=== PATIENT | male | born 1940 | race Caucasian/White ===

== ENCOUNTER → 2016-10-26 | Outpatient (CLI) | payer MEDICARE, BC ==
[~2016-10-26] MED LIST: AZOR PO; CLON.1 PO; COUM2.5T PO; COUM5TAB PO; MAXZ25 PO; METO50TA PO; ZOLP10TA3 PO
[2016-10-26 13:21] LABS: BLOOD, URINE NEG (NEG); COMMENT (UR) CULT NOT INDICATED; CULTURE IF INDICATED CULT NOT INDICATED; GLUCOSE,URINE NEG (NEG); KETONE, URINE NEG (NEG); NITRITE,URINE NEG (NEG); PH, URINE 5.5 (5.0-8.5); URINE COLOR YELLOW (YELLW/STRAW)
[2016-10-26 13:31] LABS: AUTOMATED NEUTROPHIL # 2.3 TH/MM3 (1.8-7.7); BASOPHIL % 1.1 % (0.0-2.0); EOSINOPHIL # 0.2 TH/MM3 (0-0.4); HEMATOCRIT 39.5 % (39.0-51.0); HEMO FLAGS DIFF FINAL; LYMPH % 25.8 % (9.0-44.0); LYMPHOCYTE # 1.1 TH/MM3 (1.0-4.8); MEAN CORPUSCULAR HEMOGLOBIN 29.4 PG (27.0-34.0); MEAN CORPUSCULAR HGB CONC 33.5 % (32.0-36.0); MONO % 10.6 % (0.0-8.0); NEUT % 56.5 % (16.0-70.0); PLATELET COUNT 135 TH/MM3 (150-450); RED BLOOD COUNT 4.49 MIL/MM3 (4.50-5.90); RED CELL DISTRIBUTION WIDTH 13.9 % (11.6-17.2); WHITE BLOOD COUNT 4.1 TH/MM3 (4.0-11.0)
[2016-10-26 13:39] LABS: ANION GAP 6 MEQ/L (5-15); AST (GOT) 27 U/L (15-37); BICARBONATE 27.5 MEQ/L (21.0-32.0); BLOOD UREA NITROGEN 32 MG/DL (7-18); CHLORIDE 107 MEQ/L (98-107); GLOMERULAR FILTRATION RATE 47 ML/MIN (>89); GLUCOSE,FASTING 103 MG/DL (74-99); POTASSIUM 4.4 MEQ/L (3.5-5.1); SODIUM (NA) 140 MEQ/L (136-145)
[2016-10-26 13:49] LABS: ALKALINE PHOSPHATASE 76 U/L (45-117); ALT (GPT) 29 U/L (12-78); FREE T4 0.98 NG/DL (0.76-1.46); HDL CHOLESTEROL 45.3 MG/DL (40.0-60.0); LDL CHOLESTEROL 263 MG/DL (0-99); TOTAL BILIRUBIN ADULT 0.6 MG/DL (0.2-1.0)
== END ==
LOC: PLAB 10:45
PROVIDERS: ATTEND Internal Medicine
DX: M10.9 Gout, unspecified (principal); M19.90 Unspecified osteoarthritis, unspecified site; R53.83 Other fatigue; I10 Essential (primary) hypertension; Z12.5 Encounter for screening for malignant neoplasm of prostate
CPT/HCPCS: 80053; 80061; 81001; 84439; 84443; 85025; G0103

== ENCOUNTER → 2017-05-02 | Outpatient (CLI) | payer MEDICARE, BC ==
[~2017-05-02] MED LIST changes: +COLC1CAP3 PO; +NORC5TAB PO; +OMEGCAP PO; +TRIA1CAP6 PO; +TRIA37.5 PO
[2017-05-02 13:06] LABS: AUTOMATED NEUTROPHIL # 2.4 TH/MM3 (1.8-7.7); BASOPHIL # 0.1 TH/MM3 (0-0.2); BASOPHIL % 1.6 % (0.0-2.0); EOSINOPHIL # 0.3 TH/MM3 (0-0.4); EOSINOPHIL % 6.2 % (0.0-4.0); HEMO FLAGS DIFF FINAL; LYMPH % 23.1 % (9.0-44.0); MEAN CELL VOLUME 88.9 FL (80.0-100.0); MEAN CORPUSCULAR HEMOGLOBIN 29.5 PG (27.0-34.0); MEAN CORPUSCULAR HGB CONC 33.2 % (32.0-36.0); MONO % 11.7 % (0.0-8.0); NEUT % 57.4 % (16.0-70.0); PLATELET COUNT 141 TH/MM3 (150-450); RED CELL DISTRIBUTION WIDTH 14.6 % (11.6-17.2); WHITE BLOOD COUNT 4.2 TH/MM3 (4.0-11.0)
[2017-05-02 13:16] LABS: ANION GAP 6 MEQ/L (5-15); AST (GOT) 24 U/L (15-37); BICARBONATE 28.9 MEQ/L (21.0-32.0); BLOOD UREA NITROGEN 25 MG/DL (7-18); CHLORIDE 103 MEQ/L (98-107); GLOMERULAR FILTRATION RATE 57 ML/MIN (>89); GLUCOSE,FASTING 98 MG/DL (74-99); POTASSIUM 4.3 MEQ/L (3.5-5.1); SODIUM (NA) 138 MEQ/L (136-145); URIC ACID 5.7 MG/DL (2.6-7.2)
[2017-05-02 13:41] LABS: ALT (GPT) 24 U/L (12-78); FREE T3 2.81 PG/ML (2.18-3.98); FREE T4 0.99 NG/DL (0.76-1.46); HDL CHOLESTEROL 45.3 MG/DL (40.0-60.0); LDL CHOLESTEROL 239 MG/DL (0-99)
[2017-05-02 17:18] LABS: HEMOGLOBIN A1a 0.8 %; HEMOGLOBIN A1b 1.8 %; HEMOGLOBIN Ao 84.9 %; HEMOGLOBIN LA1C 2.2 %; HEMOGLOBIN P3 5.5 %
== END ==
LOC: PLAB 09:44
PROVIDERS: ATTEND Internal Medicine
DX: M10.9 Gout, unspecified (principal); I10 Essential (primary) hypertension; I70.90 Unspecified atherosclerosis; R73.01 Impaired fasting glucose; E78.5 Hyperlipidemia, unspecified; Z79.899 Other long term (current) drug therapy
CPT/HCPCS: 36415; 80048; 80061; 82607; 83036; 84439; 84443; 84450; 84460; 84481; 84550; 85025

== ENCOUNTER 2017-05-25 07:19 | Emergency (ER) | payer MEDICARE, BC ==
[~2017-05-25] VITALS: Ht 180.3 cm; Wt 84.0 kg
[~2017-05-25 07:19] MED LIST changes: -COLC1CAP3 PO; -NORC5TAB PO; -OMEGCAP PO; -TRIA1CAP6 PO; -TRIA37.5 PO
[2017-05-25 07:21] VITALS: BP 128/74; PULSE 96; RESP 16; TEMP 97.9; O2SAT 96
--- NOTE | 2017-05-25 07:40 | PD ---
HPI Chief Complaint: Injury Time Seen by Provider: 07:29 Travel History International Travel<30 days: No Contact w/Intl Traveler<30days: No Traveled to known affect area: No History of Present Illness HPI The patient is a 76-year-old male who presents to the emergency department for right leg pain. The patient states he banged the lateral distal third of his right lower extremity on a concrete block 3 days ago. He now notes swelling and pain of the distal one third. The pain is slightly alleviated when he applies pressure to the foot, but is throbbing and painful at rest. He does note some swelling over the affected area and some bruising. The patient does have a history of atrial fibrillation for which she takes Coumadin. He also has a history of previous aortic surgery with previous vein harvesting. His primary physician is Dr. Mateo Urias. He denies any numbness or tingling to the right lower extremity. He is able to ambulate with the help of a crutch. Symptoms are mild to moderate, exacerbated after he sustained trauma to lateral distal third of the right leg, and there are no current alleviating factors. PFSH Past Medical History Hx Anticoagulant Therapy: Yes (COUMADIN) Asthma: No Heart Rhythm Problems: Yes (HX A-FIB) Cardiovascular Problems: Yes High Cholesterol: Yes Chest Pain: Yes COPD: No Diminished Hearing: Yes (AUGUSTIN BILAT) Gout: Yes Hypertension: Yes Sleep Apnea: Yes Past Surgical History Abdominal Aneurysm Repair: Yes Cardiac Surgery: Yes (AORTIC DISSECTION (ELEPHANT TRUNK SURGERY), AORTIC VALVE REPLACEMENT) Coronary Artery Bypass Graft: Yes Genitourinary Surgery: Yes (INGUINAL HERNIA REPAIR) Oral Surgery: Yes (NASAL POLYPS REMOVED) Tonsillectomy: Yes Other Surgery: Yes (ABLATION, MITRAL VALVE REPAIR, SUBCLAVIAN DISSECTION) Social History Alcohol Use: No Tobacco Use: No (QUIT 1989) Substance Use: No Allergies-Medications (Allergen,Severity, Reaction): Coded Allergies: clindamycin (Unverified Allergy, Severe, Itching, 05/25/17) Reported Meds & Prescriptions Reported Meds & Active Scripts Active Reported Metoprolol Tartrate 50 Mg Tab 50 Mg PO BID [place]-3 Fish Oil/Vitamin (Fish Oil-Cholecalciferol) 1,000-1,000 Mg Cap 1 Cap PO DAILY Triamterene-Hydrochlorothiazide 37.5-25 Mg Tab 1 Tab PO DAILY Dyrenium (Triamterene) 50 Mg Cap 50 Mg PO DAILY Coumadin (Warfarin) 2.5 Mg Tab 2.5 Mg PO DAILY Colchicine 0.6 Mg Cap 0.6 Mg PO DAILY [Daryl] 5-20 Mg PO BID Review of Systems Cardiovascular: Positive: Irregular Rhythm Musculoskeletal: Positive: Edema, Pain Skin: Positive Other (bruising) Neurologic: No: Paresthesia, Sensory Disturbance Physical Exam Narrative GENERAL: Awake, alert, very pleasant 76-year-old male who appears his stated age and is in no acute respiratory distress. SKIN: Focused skin assessment warm/dry. HEAD: Atraumatic. Normocephalic. MUSCULOSKELETAL: The right lower extremity has ecchymosis over the distal one third of the right tibia-fibula with mild tension on the skin. Chronic venous stasis changes noted legs bilaterally and superficial varicosities of the right thigh noted. Positive distal pulses. He is able flex the right hip and right knee without difficulty. He is able to flex the right ankle with somewhat limited range of motion secondary to pain. Positive distal pulses. NEUROLOGICAL: Awake and alert. No obvious cranial nerve deficits. Motor grossly within normal limits. Normal speech. Sensation is intact of the medial , lateral, and dorsal aspect of the right foot. PSYCHIATRIC: Appropriate mood and affect; insight and judgment normal. Data Data Last Documented VS Vital Signs Date Time Temp Pulse Resp B/P (MAP) Pulse Ox O2 Delivery O2 Flow Rate FiO2 05/25/17 07:21 97.9 96 16 128/74 (92) 96 Orders Orders Tibia/Fibula (Ap/Lat) (05/25/17 ) Acetamin-Hydrocod 325-5 Mg ([place] 5-325 (05/25/17 07:45) [facility] Medical Decision Making Medical Screen Exam Complete: Yes Emergency Medical Condition: Yes Medical Record Reviewed: Yes Interpretation(s) X-ray reveals postoperative changes and arthritic changes but no acute fracture. Differential Diagnosis Differential diagnosis includes contusion, hematoma, compartment syndrome, fracture, sprain, strain. Narrative Course X-ray of the right tibia/fibula was obtained. 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 I do not believe the patient has compartment syndrome, he appears to have a hematoma over the distal aspect of the right lateral fibula, however, pulses and sensation are intact and the injuries 3 days old. X-ray reveals postoperative changes consistent with previous vein harvesting and arthritic changes but no acute fracture. The patient is advised to apply the Brandon wrap, elevate, ice, and activity as tolerated. He is also advised to follow-up with his primary physician. He will be prescribed pain medications. Diagnosis Primary Impression: Traumatic hematoma of right lower leg Qualified Codes: S80.11XA - Contusion of right lower leg, initial encounter Patient Instructions: General Instructions Additional Instructions: Brandon wrap as directed. Elevate, ice, pain medications as directed. Follow-up with her primary physician. Return if symptoms worsen or progress. Med/Other Pt SpecificInfo: Prescription(s) given Scripts Hydrocodone-Acetaminophen ([place]) 5-325 mg Tab 1 TAB PO Q6H Y for PAIN, #12 TAB 0 Refills Prov: Sameer Zarate MD 05/25/17 Disposition: 01 DISCHARGE HOME Condition: Stable Sameer Zarate MD May 25, 2017 07:40
[2017-05-25] MEDS ORDERED: COUM2.5T PO (07:42)
[2017-05-25] MEDS ORDERED: TRIA37.5 PO (07:42)
[2017-05-25] MEDS ORDERED: METO50TA PO (07:42)
[2017-05-25] MEDS ORDERED: COLC1CAP3 PO (07:42)
[2017-05-25] MEDS ORDERED: TRIA1CAP6 PO (07:42)
[2017-05-25] MEDS ORDERED: OMEGCAP PO (07:42)
[2017-05-25] MEDS ORDERED: ACETAMINOPHEN/HYDROcodone 325 MG/5 MG TAB PO ONE (07:45)
[2017-05-25] MEDS ORDERED: NORC5TAB PO (08:04)
--- NOTE | 2017-05-25 08:43 | RADRPT ---
EXAM DATE/TIME: 05/25/2017 07:52 [facility] COMPARISON: No previous studies available for comparison. INDICATIONS : Hit right lower leg on concrete planter, has pain and swelling to lower leg MEDICAL HISTORY : Cardiovascular disease. SURGICAL HISTORY : CABG. bilateral leg vein stripping ENCOUNTER: Initial ACUITY: 4 - 6 days PAIN SCORE: 6/10 LOCATION: Right lower leg FINDINGS: No fracture is seen. The knee and ankle joints are normally aligned. There is chondrocalcinosis at th e knee. Surgical clips are seen in the proximal medial lower leg. There is soft tissue swelling throu ghout the lower leg being most prominent distally. CONCLUSION: 1. No fracture is seen. 2. Soft tissue swelling. 3. Chondrocalcinosis of the knee. Ion Blackmon MD on May 25, 2017 at 8:40 Board Certified Radiologist. This report was verified electronically.
== END 2017-05-25 08:20 | disposition home or self-care (01) ==
LOC: PHED 07:19
DX: S80.11XA Contusion of right lower leg, initial encounter (principal); X58.XXXA Exposure to other specified factors, initial encounter; E78.00 Pure hypercholesterolemia, unspecified; I10 Essential (primary) hypertension; I25.10 Atherosclerotic heart disease of native coronary artery without angina pectoris; I48.91 Unspecified atrial fibrillation; M10.9 Gout, unspecified; Z79.01 Long term (current) use of anticoagulants; Z95.1 Presence of aortocoronary bypass graft; Z95.2 Presence of prosthetic heart valve
CPT/HCPCS: 73590; 99283

== ENCOUNTER → 2017-08-16 | Outpatient (CLI) | payer MEDICARE, BC ==
[~2017-08-16] MED LIST changes: -CLON.1 PO; +COLC1CAP3 PO; -COUM5TAB PO; -MAXZ25 PO; +MULTTAB67 PO; +NORC5TAB PO; +OMEGCAP PO; +TRIA1CAP6 PO; +TRIA37.5 PO; +TURM500C7 PO; +ULOR40TA PO; +VITA-176 PO; +VITA250T3 PO; +VITACAP7 PO; +WARF-23 PO; -ZOLP10TA3 PO
[2017-08-16 14:27] LABS: AUTOMATED NEUTROPHIL # 2.5 TH/MM3 (1.8-7.7); BASOPHIL % 0.8 % (0.0-2.0); EOSINOPHIL # 0.2 TH/MM3 (0-0.4); EOSINOPHIL % 5.4 % (0.0-4.0); HEMATOCRIT 39.1 % (39.0-51.0); HEMO FLAGS DIFF FINAL; LYMPH % 21.5 % (9.0-44.0); LYMPHOCYTE # 0.9 TH/MM3 (1.0-4.8); MEAN CELL VOLUME 89.2 FL (80.0-100.0); MEAN CORPUSCULAR HEMOGLOBIN 30.1 PG (27.0-34.0); MEAN CORPUSCULAR HGB CONC 33.7 % (32.0-36.0); MONO % 9.9 % (0.0-8.0); NEUT % 62.4 % (16.0-70.0); PLATELET COUNT 158 TH/MM3 (150-450); RED BLOOD COUNT 4.39 MIL/MM3 (4.50-5.90); RED CELL DISTRIBUTION WIDTH 14.6 % (11.6-17.2)
[2017-08-16 14:40] LABS: ANION GAP 3 MEQ/L (5-15); AST (GOT) 22 U/L (15-37); BICARBONATE 29.8 MEQ/L (21.0-32.0); BLOOD UREA NITROGEN 21 MG/DL (7-18); CHLORIDE 104 MEQ/L (98-107); POTASSIUM 4.4 MEQ/L (3.5-5.1); SODIUM (NA) 137 MEQ/L (136-145)
[2017-08-16 14:54] LABS: ALKALINE PHOSPHATASE 70 U/L (45-117); ALT (GPT) 25 U/L (12-78); FREE T4 1.01 NG/DL (0.76-1.46); GLOMERULAR FILTRATION RATE 54 ML/MIN (>89); TOTAL BILIRUBIN ADULT 0.6 MG/DL (0.2-1.0)
== END ==
LOC: PLAB 09:57
DX: R53.83 Other fatigue (principal)
CPT/HCPCS: 36415; 80053; 84439; 84443; 85025

== ENCOUNTER 2017-08-18 16:06 | Emergency (ER) | payer MEDICARE, BC ==
[~2017-08-18] VITALS: Ht 180.3 cm; Wt 87.6 kg
[~2017-08-18 16:06] MED LIST changes: -MULTTAB67 PO; -TURM500C7 PO; -ULOR40TA PO; -VITA-176 PO; -VITA250T3 PO; -VITACAP7 PO; -WARF-23 PO
[2017-08-18 16:12] VITALS: BP 139/67; PULSE 64; RESP 18; TEMP 98.1; O2SAT 99
[2017-08-18] MEDS ORDERED: WARF-23 PO (16:35)
[2017-08-18] MEDS ORDERED: TURM500C7 PO (16:59)
[2017-08-18] MEDS ORDERED: VITA-176 PO (16:59)
[2017-08-18] MEDS ORDERED: VITACAP7 PO (16:59)
[2017-08-18] MEDS ORDERED: ULOR40TA PO (16:59)
[2017-08-18] MEDS ORDERED: MULTTAB67 PO (16:59)
[2017-08-18] MEDS ORDERED: VITA250T3 PO (16:59)
[2017-08-18] MEDS ORDERED: COLC1CAP3 PO (16:59)
[2017-08-18 17:12] VITALS: BP 118/58; PULSE 68; RESP 18; O2SAT 97
[2017-08-18 17:14] LABS: AUTOMATED NEUTROPHIL # 3.7 TH/MM3 (1.8-7.7); BASOPHIL % 0.8 % (0.0-2.0); EOSINOPHIL # 0.3 TH/MM3 (0-0.4); EOSINOPHIL % 4.9 % (0.0-4.0); HEMATOCRIT 36.9 % (39.0-51.0); HEMO FLAGS DIFF FINAL; LYMPH % 19.3 % (9.0-44.0); LYMPHOCYTE # 1.1 TH/MM3 (1.0-4.8); MEAN CORPUSCULAR HEMOGLOBIN 28.7 PG (27.0-34.0); MONO % 8.2 % (0.0-8.0); NEUT % 66.8 % (16.0-70.0); PLATELET COUNT 176 TH/MM3 (150-450); RED BLOOD COUNT 4.24 MIL/MM3 (4.50-5.90); RED CELL DISTRIBUTION WIDTH 13.9 % (11.6-17.2); WHITE BLOOD COUNT 5.6 TH/MM3 (4.0-11.0)
[2017-08-18 17:18] LABS: BLOOD, URINE NEG (NEG); GLUCOSE,URINE NEG (NEG); KETONE, URINE NEG (NEG); NITRITE,URINE NEG (NEG)
[2017-08-18 17:23] LABS: COMMENT (UR) CULT NOT INDICATED; CULTURE IF INDICATED CULT NOT INDICATED; METHOD OF COLLECTION CLEAN CATCH; SQUAMOUS EPITHELIAL CELL URINE 0-5 /hpf (0-5); URINE COLOR YELLOW (YELLW/STRAW)
[2017-08-18 17:24] LABS: CHLORIDE 104 MEQ/L (98-107); POTASSIUM 4.4 MEQ/L (3.5-5.1); SODIUM (NA) 137 MEQ/L (136-145)
[2017-08-18 17:28] LABS: ANION GAP 7 MEQ/L (5-15); BICARBONATE 26.2 MEQ/L (21.0-32.0); BLOOD UREA NITROGEN 24 MG/DL (7-18)
[2017-08-18 17:31] LABS: ALT (GPT) 25 U/L (12-78); AST (GOT) 24 U/L (15-37); GLOMERULAR FILTRATION RATE 58 ML/MIN (>89)
[2017-08-18 17:32] LABS: TOTAL BILIRUBIN ADULT 0.4 MG/DL (0.2-1.0)
--- NOTE | 2017-08-18 17:32 | RADRPT ---
EXAM DATE/TIME: 08/18/2017 17:23 [facility] COMPARISON: CHEST SINGLE AP, July 04, 2015, 0:44. INDICATIONS : Shortness of breath. MEDICAL HISTORY : Hypertension. SURGICAL HISTORY : CABG. ENCOUNTER: Initial ACUITY: 1 day PAIN SCORE: 0/10 LOCATION: Bilateral chest FINDINGS: A single view of the chest demonstrates the lungs to be symmetrically aerated without evidence of mas s, infiltrate or effusion. The heart size is enlarged but stable. There is evidence of previous card iothoracic surgery.. Osseous structures are intact. No new or significant changes compared to 2014. CONCLUSION: No acute disease. No significant change has occurred. Sammy Connell MD on August 18, 2017 at 17:30 Board Certified Radiologist. This report was verified electronically.
[2017-08-18 17:34] LABS: ALKALINE PHOSPHATASE 72 U/L (45-117)
[2017-08-18] MEDS ORDERED: LORazepam 2 MG/ML VIAL IM ONE (18:00)
[2017-08-18] MEDS ORDERED: ONDANSETRON ODT 4 MG TAB PO ONE (18:00)
[2017-08-18 18:09] VITALS: BP 137/66; PULSE 64; RESP 18; O2SAT 99
--- NOTE | 2017-08-18 18:24 | PD ---
HPI Chief Complaint: General Weakness Time Seen by Provider: 16:56 Travel History International Travel<30 days: No Contact w/Intl Traveler<30days: No Traveled to known affect area: No History of Present Illness HPI Presents with complaints of fatigue for approximately 3 weeks. States he was recently diagnosed with a hematoma on his right lower extremity and started on several medications and has felt fatigued and mildly short of breath since then. Denies any nausea vomiting diarrhea or fever. Denies any new chest pain urinary or bowel symptoms. Past medical history for coronary artery disease hypertension hyperlipidemia and history of A. fib. Compliant with Coumadin. PFSH Past Medical History Hx Anticoagulant Therapy: Yes (COUMADIN) Asthma: No Heart Rhythm Problems: Yes (HX A-FIB) Cardiovascular Problems: Yes (MD, HTN, CHOL) High Cholesterol: Yes Chest Pain: Yes COPD: No Diabetes: No Diminished Hearing: Yes (AUGUSTIN BILAT) Gout: Yes Hypertension: Yes Immunizations Current: Yes Sleep Apnea: Yes Tetanus Vaccination: Unknown Influenza Vaccination: Yes Past Surgical History Abdominal Aneurysm Repair: Yes Cardiac Surgery: Yes (AORTIC DISSECTION (ELEPHANT TRUNK SURGERY), AORTIC VALVE REPLACEMENT) Coronary Artery Bypass Graft: Yes Genitourinary Surgery: Yes (INGUINAL HERNIA REPAIR) Oral Surgery: Yes (NASAL POLYPS REMOVED) Tonsillectomy: Yes Other Surgery: Yes (ABLATION, MITRAL VALVE REPAIR, SUBCLAVIAN DISSECTION) Social History Alcohol Use: No Tobacco Use: No (QUIT 1989) Substance Use: No Allergies-Medications (Allergen,Severity, Reaction): Coded Allergies: clindamycin (Unverified Allergy, Severe, Itching, 08/18/17) oxycodone (Verified Allergy, Severe, 08/18/17) Reported Meds & Prescriptions Reported Meds & Active Scripts Active Reported B Complex (B-Complex Vitamins) 1 Cap 1 Cap PO DAILY Turmeric (Turmeric Root Extract) 500 Mg Capsule 1,500 Mg PO DAILY Vitamin A (Vitamin A Acetate) 10,000 Unit Tab.subl 1 Tab PO DAILY Vitamin C (Ascorbic Acid) 250 Mg Tab 1,000 Mg PO DAILY Multiple Vitamin 1 Tab 1 Tab PO DAILY Uloric (Febuxostat) 40 Mg Tab 1 Tab PO DAILY Colchicine 0.6 Mg Cap 0.6 Mg PO DAILY Warfarin 5 Mg Tab 5 Mg PO SUN Metoprolol Tartrate 50 Mg Tab 50 Mg PO BID [place]-3 Fish Oil/Vitamin (Fish Oil-Cholecalciferol) 1,000-1,000 Mg Cap 1 Cap PO DAILY Triamterene-Hydrochlorothiazide 37.5-25 Mg Tab 1 Tab PO DAILY Coumadin (Warfarin) 2.5 Mg Tab 2.5 Mg PO DAILY [Daryl] 5-20 Mg PO BID Review of Systems General / Constitutional: No: Fever Eyes: No: Visual changes HENT: No: Headaches Cardiovascular: No: Chest Pain or Discomfort Respiratory: No: Shortness of Breath Gastrointestinal: No: Abdominal Pain Genitourinary: No: Dysuria Musculoskeletal: No: Pain Skin: No Rash Neurologic: No: Weakness Psychiatric: No: Depression Endocrine: No: Polydipsia Hematologic/Lymphatic: No: Easy Bruising Physical Exam Narrative GENERAL: Well-nourished, well-developed patient. SKIN: Focused skin assessment warm/dry. HEAD: Normocephalic. EYES: No scleral icterus. No injection or drainage. NECK: Supple, trachea midline. No JVD or lymphadenopathy. CARDIOVASCULAR: Irregular rate and rhythm without murmurs, gallops, or rubs. RESPIRATORY: Breath sounds equal bilaterally. No accessory muscle use. GASTROINTESTINAL: Abdomen soft, non-tender, nondistended. MUSCULOSKELETAL: No cyanosis, or edema. BACK: Nontender without obvious deformity. No CVA tenderness. Data Data Last Documented VS Vital Signs Date Time Temp Pulse Resp B/P (MAP) Pulse Ox O2 Delivery O2 Flow Rate FiO2 08/18/17 18:09 64 18 137/66 (89) 99 Room Air 08/18/17 16:12 98.1 Orders Orders Electrocardiogram (08/18/17 ) Complete Blood Count With Diff (08/18/17 16:56) Comprehensive Metabolic Panel (08/18/17 16:56) Urinalysis - C+S If Indicated (08/18/17 16:56) Chest, Single Ap (08/18/17 ) Ondansetron Odt (Zofran Odt) (08/18/17 18:00) Lorazepam Inj (Ativan Inj) (08/18/17 18:00) Labs Laboratory Tests Test 08/18/17 16:45 08/18/17 17:10 Urine Collection Type CLEAN CATCH Urine Color YELLOW Urine Turbidity CLEAR Urine pH 7.0 Urine Specific [place] 1.009 Urine Protein NEG mg/dL Urine Glucose (UA) NEG mg/dL Urine Ketones NEG mg/dL Urine Occult Blood NEG Urine Nitrite NEG Urine Bilirubin NEG Urine Leukocyte Esterase NEG Urine Squamous Epithelial Cells 0-5 /hpf Microscopic Urinalysis Comment CULT NOT INDICATED White Blood Count 5.6 TH/MM3 Red Blood Count 4.24 MIL/MM3 Hemoglobin 12.2 GM/DL Hematocrit 36.9 % Mean Corpuscular Volume 87.0 FL Mean Corpuscular Hemoglobin 28.7 PG Mean Corpuscular Hemoglobin Concent 33.0 % Red Cell Distribution Width 13.9 % Platelet Count 176 TH/MM3 Mean Platelet Volume 7.1 FL Neutrophils (%) (Auto) 66.8 % Lymphocytes (%) (Auto) 19.3 % Monocytes (%) (Auto) 8.2 % Eosinophils (%) (Auto) 4.9 % Basophils (%) (Auto) 0.8 % Neutrophils # (Auto) 3.7 TH/MM3 Lymphocytes # (Auto) 1.1 TH/MM3 Monocytes # (Auto) 0.5 TH/MM3 Eosinophils # (Auto) 0.3 TH/MM3 Basophils # (Auto) 0.0 TH/MM3 CBC Comment DIFF FINAL Differential Comment Blood Urea Nitrogen 24 MG/DL Creatinine 1.20 MG/DL Random Glucose 100 MG/DL Total Protein 7.0 GM/DL Albumin 3.7 GM/DL Calcium Level 8.7 MG/DL Alkaline Phosphatase 72 U/L Aspartate Amino Transf (AST/SGOT) 24 U/L Alanine Aminotransferase (ALT/SGPT) 25 U/L Total Bilirubin 0.4 MG/DL Sodium Level 137 MEQ/L Potassium Level 4.4 MEQ/L Chloride Level 104 MEQ/L Carbon Dioxide Level 26.2 MEQ/L Anion Gap 7 MEQ/L Estimat Glomerular Filtration Rate 58 ML/MIN [facility] Medical Decision Making Medical Screen Exam Complete: Yes Emergency Medical Condition: Yes Differential Diagnosis Failure to thrive, dysrhythmia, sepsis, dyspnea, generalized weakness Narrative Course Assessment and plan discussed with patient at bedside. EKG revealed sinus bradycardia with sinus arrhythmia and first-degree AV block. Comparison revealed a ectopic atrial rhythm however was more regular. Labs within normal limits. Mildly anemic but I don't think significant enough to cause his symptoms. Last 72 hours Impressions Chest X-Ray 08/18/17 0000 Signed Impressions: Service Date/Time: Friday, August 18, 2017 17:23 - CONCLUSION: No acute disease. No significant change has occurred. Sammy Connell MD Diagnosis Primary Impression: Generalized weakness Additional Impressions: Dyspnea Qualified Codes: R06.00 - Dyspnea, unspecified Sinus arrhythmia Patient Instructions: General Instructions Additional Instructions: Encouraged patient to follow up with cardiology to discuss sinus arrhythmia and possible adjustment of his beta ezekiel. Encouraged to return to emergency room with any onset of new symptoms. Med/Other Pt SpecificInfo: No Meds Exist/No RX given Disposition: 01 DISCHARGE HOME Condition: Good Conrad Aguilera MD Aug 18, 2017 18:24
--- NOTE | 2017-08-19 19:45 | EKG ---
Date Performed: 08/18/2017 Time Performed: 17:02:32 PTAGE: 77 years EKG: SINUS ECTOPIC BRADYCARDIA WITH MARKED SINUS ARRHYTHMIA WITH FIRST DEGREE AV BLOCK INDETERM INATE AXIS ABNORMAL ECG PREVIOUS TRACING : 07/04/2015 00.43 Compared to prior tracing no significant change DOCTOR: Noam Rdz Interpretating Date/Time 08/19/2017 19:43:41
== END 2017-08-18 18:43 | disposition home or self-care (01) ==
LOC: PHED 16:06
DX: R53.1 Weakness (principal); R06.02 Shortness of breath; R94.31 Abnormal electrocardiogram [ECG] [EKG]; I48.91 Unspecified atrial fibrillation; I10 Essential (primary) hypertension; I25.10 Atherosclerotic heart disease of native coronary artery without angina pectoris; E78.00 Pure hypercholesterolemia, unspecified
CPT/HCPCS: 71010; 80053; 81001; 85025; 93005; 96372

== ENCOUNTER → 2017-10-30 | Outpatient (CLI) | payer MEDICARE, BC ==
[~2017-10-30] MED LIST changes: +MULTTAB67 PO; -NORC5TAB PO; -TRIA1CAP6 PO; +TURM500C7 PO; +ULOR40TA PO; +VITA-176 PO; +VITA250T3 PO; +VITACAP7 PO; +WARF-23 PO
[2017-10-30 13:00] LABS: AUTOMATED NEUTROPHIL # 4.3 TH/MM3 (1.8-7.7); BASOPHIL # 0.1 TH/MM3 (0-0.2); EOSINOPHIL # 0.2 TH/MM3 (0-0.4); EOSINOPHIL % 2.9 % (0.0-4.0); HEMATOCRIT 39.8 % (39.0-51.0); HEMOGLOBIN 13.7 GM/DL (13.0-17.0); LYMPH % 22.5 % (9.0-44.0); LYMPHOCYTE # 1.5 TH/MM3 (1.0-4.8); MEAN CELL VOLUME 87.3 FL (80.0-100.0); MEAN CORPUSCULAR HEMOGLOBIN 29.9 PG (27.0-34.0); MEAN CORPUSCULAR HGB CONC 34.3 % (32.0-36.0); MEAN PLATELET VOLUME 7.4 FL (7.0-11.0); MONO % 10.4 % (0.0-8.0); MONOCYTE # 0.7 TH/MM3 (0-0.9); NEUT % 63.2 % (16.0-70.0); PLATELET COUNT 207 TH/MM3 (150-450); RED BLOOD COUNT 4.56 MIL/MM3 (4.50-5.90); RED CELL DISTRIBUTION WIDTH 14.2 % (11.6-17.2); WHITE BLOOD COUNT 6.8 TH/MM3 (4.0-11.0)
[2017-10-30 13:06] LABS: ALBUMIN 3.6 GM/DL (3.4-5.0); AST (GOT) 28 U/L (15-37); BICARBONATE 30.9 MEQ/L (21.0-32.0); BLOOD UREA NITROGEN 33 MG/DL (7-18); CALCIUM 9.1 MG/DL (8.5-10.1); CHLORIDE 103 MEQ/L (98-107); CREATININE 1.13 MG/DL (0.60-1.30); GLOMERULAR FILTRATION RATE 63 ML/MIN (>89); GLUCOSE,FASTING 91 MG/DL (74-99); SODIUM (NA) 138 MEQ/L (136-145)
[2017-10-30 13:06] LABS: BILIRUBIN, URINE NEG (NEG); BLOOD, URINE NEG (NEG); GLUCOSE,URINE NEG (NEG); KETONE, URINE NEG (NEG); MUCUS URINE FEW /lpf (OCC); NITRITE,URINE NEG (NEG); PH, URINE 5.5 (5.0-8.5); URINE COLOR YELLOW (YELLW/STRAW); URINE LEUKOCYTE ESTERASE NEG (NEG)
[2017-10-30 13:32] LABS: ALKALINE PHOSPHATASE 54 U/L (45-117); ALT (GPT) 35 U/L (12-78); CHOLESTEROL 338 MG/DL (120-200); CHOLESTEROL/ HDL RATIO 4.52 RATIO; FREE T3 2.32 PG/ML (2.18-3.98); FREE T4 1.05 NG/DL (0.76-1.46); HDL CHOLESTEROL 74.7 MG/DL (40.0-60.0); LDL CHOLESTEROL 235 MG/DL (0-99); TOTAL BILIRUBIN ADULT 0.5 MG/DL (0.2-1.0); TOTAL PROTEIN 6.9 GM/DL (6.4-8.2); TRIGLYCERIDES 144 MG/DL (42-150)
== END ==
LOC: PLAB 10:19
PROVIDERS: ATTEND Internal Medicine
DX: R53.83 Other fatigue (principal); E29.1 Testicular hypofunction; E78.5 Hyperlipidemia, unspecified; I10 Essential (primary) hypertension; Z79.899 Other long term (current) drug therapy; Z12.11 Encounter for screening for malignant neoplasm of colon; Z12.5 Encounter for screening for malignant neoplasm of prostate
CPT/HCPCS: 36415; 80053; 80061; 81001; 82607; 84403; 84439; 84443; 84481; 85025; G0103

== ENCOUNTER → 2017-12-19 | Outpatient (CLI) | payer MEDICARE, BC | LOC: PLAB 12:21 | PROVIDERS: ATTEND Internal Medicine Sleep Medicine | DX: E88.01 Alpha-1-antitrypsin deficiency (principal) | CPT/HCPCS: 36415; 82103 ==

== ENCOUNTER 2018-02-24 15:44 | Emergency (ER) | payer MEDICARE, BC ==
[~2018-02-24] VITALS: Ht 177.8 cm; Wt 84.4 kg
[2018-02-24 16:07] VITALS: BP 118/55; PULSE 61; RESP 16; TEMP 98.7; O2SAT 97
--- NOTE | 2018-02-24 17:18 | RADRPT ---
EXAM DATE: 02/24/2018 5:13 PM EDT AGE/SEX: 77 years / Male INDICATIONS: Left elbow pain, swelling, and decreased range of motion after fall. CLINICAL DATA: This is the patient's initial encounter. Patient reports that signs and symptoms have been present for 4 - 6 days and indicates a pain score of 10/10. MEDICAL/SURGICAL HISTORY: . No pertinent history. . No pertinent history. COMPARISON: [facility], ELBOW LEFT COMPLETE (4 VWS), 11/05/2010. . FINDINGS: Bone density is normal. Alignment is anatomic. Fracture is not appreciated. Small joint effusion evident. Site of fracture not appreciated. CONCLUSION: Small joint effusion. I do not see a definite fracture. Follow-up in 7-10 days would be of benefit if symptoms persist. Electronically signed by: Prosper Gibbs MD 02/24/2018 5:17 PM EDT
--- NOTE | 2018-02-24 17:19 | PD ---
HPI Chief Complaint: Fall Time Seen by Provider: 16:22 Travel History International Travel<30 days: No Contact w/Intl Traveler<30days: No Traveled to known affect area: No History of Present Illness HPI This is a 77-year-old male here with right wrist and left elbow pain after a fall 5 days ago. He reports he tripped and fell forward onto his concrete driveway. He does not believe he lost consciousness. He is anticoagulated on Coumadin. He has had continued pain within the extremities therefore came in today for evaluation after being encouraged by his son. He denies headaches, visual changes, neck pain, chest pain, shortness breath, nausea or vomiting, paresthesia or weakness of the extremities. He reports he has significant pain in the elbow and wrist with movement. Relieved with rest. Severity moderate PFSH Past Medical History Hx Anticoagulant Therapy: Yes Asthma: No Heart Rhythm Problems: Yes (HX A-FIB) Cardiovascular Problems: Yes (htn on meds, a-fib) High Cholesterol: Yes Chest Pain: Yes COPD: No Diabetes: No Diminished Hearing: Yes (AUGUSTIN BILAT) Gout: Yes Hypertension: Yes Immunizations Current: Yes Sleep Apnea: Yes Past Surgical History Abdominal Aneurysm Repair: Yes Cardiac Surgery: Yes (AORTIC DISSECTION (ELEPHANT TRUNK SURGERY), AORTIC VALVE REPLACEMENT) Coronary Artery Bypass Graft: Yes Genitourinary Surgery: Yes (INGUINAL HERNIA REPAIR) Oral Surgery: Yes (NASAL POLYPS REMOVED) Tonsillectomy: Yes Other Surgery: Yes (ABLATION, MITRAL VALVE REPAIR, SUBCLAVIAN DISSECTION) Social History Alcohol Use: Yes (RARE) Tobacco Use: No (QUIT 1989) Substance Use: No Allergies-Medications (Allergen,Severity, Reaction): Coded Allergies: clindamycin (Verified Allergy, Severe, Itching, 02/24/18) oxycodone (Verified Allergy, Severe, 02/24/18) Reported Meds & Prescriptions Reported Meds & Active Scripts Active Reported B Complex (B-Complex Vitamins) 1 Cap 1 Cap PO DAILY Turmeric (Turmeric Root Extract) 500 Mg Capsule 1,500 Mg PO DAILY Vitamin A (Vitamin A Acetate) 10,000 Unit Tab.subl 1 Tab PO DAILY Vitamin C (Ascorbic Acid) 250 Mg Tab 1,000 Mg PO DAILY Multiple Vitamin 1 Tab 1 Tab PO DAILY Uloric (Febuxostat) 40 Mg Tab 1 Tab PO DAILY Colchicine 0.6 Mg Cap 0.6 Mg PO DAILY Warfarin 5 Mg Tab 5 Mg PO SUN Metoprolol Tartrate 50 Mg Tab 50 Mg PO BID [place]-3 Fish Oil/Vitamin (Fish Oil-Cholecalciferol) 1,000-1,000 Mg Cap 1 Cap PO DAILY Triamterene-Hydrochlorothiazide 37.5-25 Mg Tab 1 Tab PO DAILY Coumadin (Warfarin) 2.5 Mg Tab 2.5 Mg PO DAILY [Daryl] 5-20 Mg PO BID Review of Systems Except as stated in HPI: all other systems reviewed are Neg General / Constitutional: No: Fever Eyes: No: Visual changes HENT: No: Headaches Cardiovascular: No: Chest Pain or Discomfort Respiratory: No: Shortness of Breath Gastrointestinal: No: Abdominal Pain Genitourinary: No: Dysuria Musculoskeletal: Positive: Pain (Left elbow, right wrist) Physical Exam Narrative GENERAL: Alert and well-appearing 77-year-old male. Ambulating with a steady gait SKIN: Warm and dry. No areas of ecchymosis or abrasions. HEAD: Atraumatic. Normocephalic. EYES: Pupils equal and round. EOMs intact. No injection or drainage. NECK: Trachea midline. No cervical midline tenderness. Freely moves the neck CARDIOVASCULAR: Regular rate and rhythm. RESPIRATORY: No accessory muscle use. Clear to auscultation. Breath sounds equal bilaterally. GASTROINTESTINAL: Abdomen soft, non-tender, nondistended. MUSCULOSKELETAL: Extremities without clubbing, cyanosis, or edema. No obvious deformities. Left upper extremity: Notable swelling and tenderness to the left elbow over the olecranon. Pain with full extension. Palpable distal pulses. Sensation intact. Cap refill intact. Right upper extremity: Tenderness to the distal radius without obvious deformity. Palpable radial pulse. Sensation intact. Cap refill intact. BACK: No CVA tenderness. No rash. No point tenderness on palpation of the spine. NEUROLOGICAL: Awake and alert. No obvious cranial nerve deficits. Motor grossly within normal limits. Five out of 5 muscle strength in the arms and legs. Normal speech. PSYCHIATRIC: Appropriate mood and affect; insight and judgment normal. Data Data Last Documented VS Vital Signs Date Time Temp Pulse Resp B/P (MAP) Pulse Ox O2 Delivery O2 Flow Rate FiO2 02/24/18 16:07 98.7 61 16 118/55 (76) [address] Brain W/O Iv Contrast(Rout) (02/24/18 ) Elbow, Complete (4 Vws) (02/24/18 ) Wrist, Complete ([id number]) (02/24/18 ) MDM Medical Decision Making Medical Screen Exam Complete: Yes Emergency Medical Condition: Yes Differential Diagnosis Fracture, contusion, sprain Narrative Course 77-year-old male with injuries from a fall 5 days ago. He has normal neurologic exam. His extremities are neurovascularly intact. CT the brain: No acute abnormality X-ray left elbow: Left elbow effusion without fracture X-ray right wrist: Negative for fracture Left arm sling provided to patient. All findings were discussed with patient and family. He was offered pain medication declined. He is stable and ready for discharge. Diagnosis Primary Impression: Elbow contusion Qualified Codes: S50.02XA - Contusion of left elbow, initial encounter Additional Impression: Wrist contusion Qualified Codes: S60.211A - Contusion of right wrist, initial encounter Referrals: Primary Care Physician Additional Instructions: Tylenol as needed for pain. Sling for left arm for comfort. Follow-up with her primary doctor for recheck. Disposition: 01 DISCHARGE HOME Condition: Stable Adriana Morris Feb 24, 2018 17:19
--- NOTE | 2018-02-24 17:39 | RADRPT ---
EXAM DATE: 02/24/2018 5:21 PM EDT AGE/SEX: 77 years / Male INDICATIONS: Fall. CLINICAL DATA: This is the patient's initial encounter. Patient reports that signs and symptoms have been present for 4 - 6 days and indicates a pain score of 4/10. MEDICAL/SURGICAL HISTORY: Hypertension. Cardiovascular disease. CABG. Aortic valve replacement. RADIATION DOSE: 60.91 CTDI (mGy) COMPARISON: No prior exams available for comparison. TECHNIQUE: CT of the head without contrast. Using automated exposure control and adjustment of the mA and/or kV according to patient size, radiation dose was kept as low as reasonably achievable to ob tain optimal diagnostic quality images. FINDINGS: Cerebrum: The ventricles are mildly distended. There is decreased density in the cerebral white mat ter. No evidence of midline shift, mass lesion, hemorrhage or acute infarction. No extraaxial fluid collections are seen. Posterior Fossa: The cerebellum and brainstem are intact. The 4th ventricle is midline. The cerebe llopontine angle is unremarkable. Extracranial: The visualized portion of the orbits is intact. Skull: The calvaria is intact. No evidence of skull fracture. CONCLUSION: 1. No acute abnormality seen. 2. Decreased density in the cerebral white matter reflecting demyelination. This is likely secondary to small vessel ischemic change. 3. Mild atrophy. Electronically signed by: Ion Blackmon MD 02/24/2018 5:38 PM EDT
--- NOTE | 2018-02-24 18:33 | RADRPT ---
EXAM DATE: 02/24/2018 5:11 PM EDT AGE/SEX: 77 years / Male INDICATIONS: Diffuse right wrist pain after fall on . CLINICAL DATA: This is the patient's initial encounter. Patient reports that signs and symptoms have been present for 4 - 6 days and indicates a pain score of 5/10. MEDICAL/SURGICAL HISTORY: . No pertinent history . No pertinent history. COMPARISON: No prior exams available for comparison. FINDINGS: There is moderate to severe osteoarthritis at the right wrist. No acute fracture or dislocation. No b leila destructive changes. 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 No acute findings. Electronically signed by: Jonathan Duenas MD 02/24/2018 6:32 PM EDT
== END 2018-02-24 19:08 | disposition home or self-care (01) ==
LOC: PHEFT 15:44
DX: S60.211A Contusion of right wrist, initial encounter (principal); S50.02XA Contusion of left elbow, initial encounter; I10 Essential (primary) hypertension; I48.91 Unspecified atrial fibrillation; W01.0XXA Fall on same level from slipping, tripping and stumbling without subsequent striking against object, initial encounter; Y93.01 Activity, walking, marching and hiking; Y92.008 Other place in unspecified non-institutional (private) residence as the place of occurrence of the external cause; Z79.01 Long term (current) use of anticoagulants
CPT/HCPCS: 70450; 73080; 73110; 99284